=== PATIENT | male | born 1935 | race Caucasian/White ===

== ENCOUNTER → 2018-07-20 | Outpatient (CLI) | payer MEDICARE, BC ==
[~2018-07-20] MED LIST: AMLODIPINE BESYL5 MG PO; ASPIR 8181 MG PO; DICLOFENAC PO; DIOVAN HCT 3201 EACH PO; DOXAZOSIN MESYLA2 MG PO; GABAPENTIN400 MG PO; KETOCONAZOLE15 GM TOP; NORCO 10-325 T1 EACH PO; NORCO 7.5-3251 EACH PO; OMEPRAZOLE40 MG PO; PENTOXIFYLLINE400 MG PO; RANITIDINE HCL300 MG PO; SYNTHROID75 MCG PO; TIZANIDINE HCL4 MG PO
--- NOTE | 2018-07-20 11:36 | Diagnostic Imaging Report ---
MRI SPINE LUMBAR WO History: 82-year-old male with right greater than left back and leg pain for 3 years , suspected spinal stenosis, pain radiating anteriorly and posteriorly down both legs. Prior surgery. Spinal stenosis without neurogenic claudication. Comparison studies:None Technique: Sagittal and axial T2 , sagittal T1 and IR, axial spin density oblique. Intravenous contrast: None Findings: Postoperative changes appear to be present on the left at L4-L5, from possibly a laminotomy and partial facetectomy. Number of lumbar vertebral bodies: 5. Alignment: Straightening of the lumbar spine with loss of the normal lordosis. Right apex curvature of the lumbar spine centered at L3-L4 with 20 degrees of angulation. Soft tissues: Asymmetric increased T2 signal within the left L4-L5 facet joint. Paraspinal muscles: Mild atrophy of the paraspinous muscles. It appears appropriate for age. Lower thoracic cord: Normal in signal and morphology. The tip of the conus is at T12-L1 . Cauda equina: No masses. No arachnoiditis. Vertebrae: No compression fractures, infection or neoplasm. Degenerative changes: L1-L2: Decreased T2 signal within the disc with loss of normal disc height. Symmetric bulging disc with 3 mm of posterior mass effect. Spinal canal is widely patent. Mild narrowing of the left foramen. L2-L3: Decreased T2 signal within the disc. Symmetric bulging disc with 3 mm of posterior mass effect. Mild thickening of the ligamentum flavum. Mild narrowing of the spinal canal. Moderate to severe narrowing of the left foramen. L3-L4: Decreased T2 signal within the disc with severe loss of disc height. Symmetric bulging disc with 4 mm of posterior mass effect. Moderate narrowing of the spinal canal. Moderate narrowing the right foramen. Severe narrowing the left foramen. L4-L5: Decreased T2 signal within the disc with near complete loss of discs height. Symmetric bulging disc with 3.6 mm of posterior mass effect. Moderate narrowing of spinal canal. Thickening of the ligamentum flavum. Apparent postoperative changes within the left foramen with yylo-jl-njhqlaub residual narrowing. Severe narrowing of the right foramen. Severe bilateral facet arthropathy. L5-S1: Also T2 signal and disc height. Symmetric bulging disc with 2 mm of posterior mass effect. Spinal canal is patent. Moderate narrowing of the left foramen. Sydikhro-ui-iozzim narrowing of the right foramen. Bilateral facet arthropathy. IMPRESSION: 1. Possible postoperative changes seen adjacent to the left foramen at L4-L5 2. Foraminal narrowing greatest on the right L4-L5 and left L3-L4. 3. Degenerative disc greatest at L3-L4 and L4-L5 with near complete loss of disc space 4. Spinal canal narrowing greatest at L4-L5, moderate. Signed by: Dr. Raul Almazan M.D. on 07/20/2018 11:32 AM
== END ==
LOC: MRI 07:25
PROVIDERS: ATTEND Neurological Surgery
DX: M48.062 Spinal stenosis, lumbar region with neurogenic claudication (principal)
CPT/HCPCS: 72148

== ENCOUNTER 2018-07-21 07:44 | Observation (INO) | payer MEDICARE, BC ==
[2018-07-19 15:52] LABS: BASOPHILS # (AUTO) 0.1 (0.0-0.1); BASOPHILS % 0.7 % (0.0-1.0); EOSINOPHILS # (AUTO) 0.2 (0.0-0.4); EOSINOPHILS % 2.8 % (0.0-6.0); HEMATOCRIT 32.4 % (38.2-49.6); HEMOGLOBIN 10.9 g/dL (14.0-18.0); LYMPHOCYTES # (AUTO) 1.7 (1.0-3.2); LYMPHOCYTES % 22.5 % (18.0-39.1); MEAN CORPUSCULAR HEMOGLOBIN 32.4 pg (28-32); MEAN CORPUSCULAR HGB CONC 33.6 g/dL (31-35); MEAN CORPUSCULAR VOLUME 96.4 fL (81-99); MONOCYTES # (AUTO) 0.7 (0.2-0.8); MONOCYTES % 9.2 % (4.4-11.3); NEUTROPHILS # (AUTO) 4.8 (2.1-6.9); NEUTROPHILS % 64.4 % (38.7-80.0); PLATELET COUNT 223 x10e3/uL (140-360); RED BLOOD COUNT 3.36 x10e6/uL (4.3-5.7); RED CELL DISTRIBUTION WIDTH 13.7 % (11.7-14.4)
--- NOTE | 2018-07-19 15:58 | Diagnostic Imaging Report ---
EXAMINATION: PA and lateral views of the chest. COMPARISON: None CLINICAL HISTORY: Preoperative study for spinal surgery DISCUSSION: Lines/tubes: None. Lungs: The lungs are well inflated and clear. There is no evidence of pneumonia or pulmonary edema. Pleura: There is no pleural effusion or pneumothorax. Heart and mediastinum: The cardiomediastinal silhouette is normal. Bones and soft tissues: No acute bony abnormalities. IMPRESSION: No acute cardiopulmonary abnormalities. Signed by: Dr. Nghia Pollock M.D. on 07/19/2018 3:55 PM
[2018-07-19 16:00] LABS: INR 0.93
[2018-07-19 16:01] LABS: PARTIAL THROMBOPLASTIN TIME 25.5 seconds (23.8-35.5)
[2018-07-19 16:07] LABS: ANION GAP 12.7 mmol/L (8-16); CALCIUM 9.3 mg/dL (8.4-10.2); CREATININE, SERUM 1.19 mg/dL (0.72-1.25); POTASSIUM 3.7 mmol/L (3.5-5.1)
[~2018-07-21] VITALS: Ht 175.3 cm; Wt 74.8 kg
[~2018-07-21 07:44] MED LIST changes: -NORCO 7.5-3251 EACH PO
--- OUTSIDE RECORDS SUMMARY | 2018-07-21 07:51 | XMS REPORT ---
Author Author [facility] Organization [facility] Address Unknown Phone Unavailable Care Team Providers Care Slitter Operator Name Role Phone TAMIR WEIR Unavailable Unavailable Payers Payer Name Policy Type Policy Number Effective Date Expiration Date Problems This patient has no known problems. Allergies, Adverse Reactions, Alerts Allergy Name Allergy Type Status Severity Reaction(s) Onset Date Inactive Date Treating Clinician Comments clindamycin DA Active MA 2014-11-23 00:00:00 penicillin DA Active U 2014-10-29 00:00:00 Medications This patient has no known medications. Results Test Description Test Time Test Comments Text Results Atomic Results Result Comments MRI SPINE LUMBAR WO 2018-07-20 11:05:00 [place] [address] Patient Name: BINA ESPINOSA JR MR #: [id number] : 1935 Age/Sex: 82/M Req #: [id number] Adm Physician: Ordered by: TAMIR WEIR MD Report #: [id number] Location: MRI Room/Bed: Procedure: [id number] MRI/MRI SPINE LUMBAR WO Exam Date: Exam Time: REPORT STATUS: Signed MRI SPINE LUMBAR WO History: 82-year-old male with right greater than left back and leg pain for 3 years , suspected spinal stenosis, pain radiating anteriorly and posteriorly down both legs. Prior surgery. Spinal stenosis without neurogenic claudication. Comparison studies:None Technique: Sagittal and axial T2 , sagittal T1 and IR, axial spin density oblique. Intravenous contrast: None Findings: Postoperative changes appear to be present on the left at L4-L5, from possibly a laminotomy and partial facetectomy. Number of lumbar vertebral bodies: 5. Alignment: Straightening of the lumbar spine with loss of the normal lordosis. Right apex curvature of the lumbar spine centered at L3-L4 with 20 degrees of angulation. Soft tissues: Asymmetric increased T2 signal within the left L4-L5 facet joint. Paraspinal muscles: Mild atrophy of the paraspinous muscles. It appears appropriate for age. Lower thoracic cord: Normal in signal and morphology. The tip of the conus is at T12-L1 . Cauda equina: No masses. No arachnoiditis. Vertebrae: No compression fractures, infection or neoplasm. Degenerative changes: L1-L2: Decreased T2 signal within the disc with loss of normal disc height. Symmetric bulging disc with 3 mm of posterior mass effect. Spinal canal is widely patent. Mild narrowing of the left foramen. L2-L3: Decreased T2 signal within the disc. Symmetric bulging disc with 3 mm of posterior mass effect. Mild thickening of the ligamentum flavum. Mild narrowing of the spinal canal. Moderate to severe narrowing of the left foramen. L3-L4: Decreased T2 signal within the disc with severe loss of disc height. Symmetric bulging disc with 4 mm of posterior mass effect. Moderate narrowing of the spinal canal. Moderate narrowing the right foramen. Severe narrowing the left foramen. L4-L5: Decreased T2 signal within the disc with near complete loss of discs height. Symmetric bulging disc with 3.6 mm of posterior mass effect. Moderate narrowing of spinal canal. Thickening of the ligamentum flavum. Apparent postoperative changes within the left foramen with jeeh-uz-rravesmh residual narrowing. Severe narrowing of the right foramen. Severe bilateral facet arthropathy. L5-S1: Also T2 signal and disc height. Symmetric bulging disc with 2 mm of posterior mass effect. Spinal canal is patent. Moderate narrowing of the left foramen. Hvlcprjm-tf-vpbwxl narrowing of the right foramen. Bilateral facet arthropathy. IMPRESSION: 1. Possible postoperative changes seen adjacent to the left foramen at L4-L5 2. Foraminal narrowing greatest on the right L4-L5 and left L3-L4. 3. Degenerative disc greatest at L3-L4 and L4-L5 with near complete loss of disc space 4. Spinal canal narrowing greatest at L4-L5, moderate. Signed by: Dr. Raul Lofton M.D. on 07/20/2018 11:32 AM Dictated By: RAUL LOFTON MD 1132 Transcribed By: KYARA on 07/20/18 1132 COPY TO: TAMIR WEIR MD CHEST 2 VIEWS 2018-07-19 15:54:00 [place] [address] Patient Name: BINA ESPINOSA JR MR #: [id number] : 1935 Age/Sex: 82/M Req #: [id number] Adm Physician: Ordered by: TAMIR WEIR MD Report #: [id number] Location: OR Room/Bed: Procedure: [id number] DX/CHEST 2 VIEWS Exam Date: 07/19/18 Exam Time: 1530 REPORT STATUS: Signed EXAMINATION: PA and lateral views of the chest. COM PARISON: None CLINICAL HISTORY: Preoperative study for spinal surgery DISCUSSION: Lines/tubes: None. Lungs: The lungs are well inflated and clear. There is no evidence of pneumonia or pulmonary edema. Pleura: There is no pleural effusion or pneumothorax. Heart and mediastinum: The cardiomediastinal silhouette is normal. Bones and soft tissues: No acute bony abnormalities. IMPRESSION: No acute cardiopulmonary abnormalities. Signed by: Dr. Sumit Castorena M.D. on 07/19/2018 3:55 PM Dictated By: SUMIT CASTORENA MD 1534 Transcribed By: KYARA on 07/19/18 7281 COPY TO: TAMIR WEIR MD - XR UGI W/AIR W/O KUB 2018-07-01 12:10:00 FAX: Qing Jiménez MD [phone] [place]: St: REG FAX: Kendall Barth MD [phone] Name: BINA ESPINOSA JR [facility] : 1935 Age/S: 82/M [address] [place] [address] Unit #: [id number] Loc: [place] [address] Phys: Qing Meek MD Acct: [id number] Dis Date: Status: REG CLI PHONE #: [phone] Exam Date: 07/01/20181106 FAX #: [phone] Reason: K21.9 GERD, R10.13 EPIGAST ABD PAIN EXAMS: CPT CODE: [id number] XR UGI W/AIR W/O KUB 08136 Patient Name: BINA ESPINOSA JR : 1935; Age: 82 years y/o Male MR: [id number] Study: - XR UGI W/AIR W/O KUB 07/01/2018 11:00 AM Ordering Physician: Qign Meek MD Clinical Indication: ; K21.9 GERD, R10.13 EPIGASTRIC ABD PAIN Comparison: None TECHNIQUE AND FINDINGS: A routine upper gastrointestinal series performed under fluoroscopic observation. Multiple spot images were obtained. Fluoroscopic time was 5.3 minutes. Reference Air Kerma Dose 144.3 mGy. Pharyngoesophageal junction: Normal in appearance without narrowing or diverticulum. ESOPHAGUS Morphology: Normal in course and caliber. Motility: Normal primary and secondary peristaltic waves. Mucosa: Normal without thickening, irregularity, or ulcer. Esophagogastric junction: Normal. Gastroesophageal reflux: None. STOMACH Morphology: Normal degree of distention and shape. Mucosa: Normal appearing rugal folds. Gastroduodenal junction: There is prompt transit of the barium from the stomach into the duodenum. IMPRESSION: Unremarkable upper GI examination. SL: [id number] PAGE 1 Signed Report (CONTINUED) FAX: Qing Jiménez MD [phone] [place]: St: REG FAX: Kendall Barth MD [phone] Name: BINA ESPINOSA JR [facility] : 1935 Age/S: 82/M [address] [place] [address] Unit #: [id number] Loc: [place] [id number] Phys: Qing Meek MD Acct: [id number] Dis Date: Status: REG CLI PHONE #: [phone] Exam Date: 07/01/2018 1107 FAX #: [phone] Reason: K21.9 GERD, R10.13 EPIGAST ABD PAIN EXAMS: CPT CODE: [id number] XR UGI W/AIR W/O KUB 49427 <Continued> at 1210 Reported and signed by: Shilpi Lucero D.O. CC: Qing Meek MD; Kendall Kovacs MD Technologist: Jackelyn Duarte, RT(R), RTT Trnscrd Date/Time/By: 07/01/2018 (1210) : By: [email or web address] Orig Print D/T: S: 07/01/2018 (1514) PAGE 2 Signed Report
--- OUTSIDE RECORDS SUMMARY | 2018-07-21 07:51 | XMS REPORT | Clinical Summary ---
Author Author [facility] Address Unknown Phone Unavailable Care Team Providers Care Cash Register Mechanic Name Role Phone Kendall Kovacs MD PCP Allergies Not on File Medications Not on file Active Problems Not on file Encounters Care Team Description Date Type Specialty Arley Alejandro MD Spinal stenosis, lumbar region, without neurogenic claudication (Primary Dx); Lumbar radiculopathy; Low back pain, unspecified back pain laterality, unspecified chronicity, with sciatica presence unspecified 10/06/2017 Transcribe Physical Therapy Orders Arley Alejandro MD Spinal stenosis of lumbar region with radiculopathy (Primary Dx); Low back pain, unspecified back pain laterality, unspecified chronicity, with sciatica presence unspecified; Lumbar radiculopathy 08/17/2017 Transcribe Physical Therapy Orders after 07/20/2017 Social History Date Tobacco Use Types Packs/Day Years Used Never Assessed Sex Assigned at Date Recorded Not on file Industry Job Start Date Occupation Not on file Not on file Not on file Travel End Travel History Travel Start No recent travel history available. Last Filed Vital Signs Not on file Plan of Treatment Health Maintenance Due Date Last Done Comments SHINGLES VACCINES (#1) 11/25/1983 65+ PNEUMOCOCCAL VACCINE 1998 (1 of 2 - PCV13) PNEUMOCOCCAL 1998 POLYSACCHARIDE VACCINE AGE 65 AND OVER INFLUENZA VACCINE 09/15/2018 Results Not on fileafter 07/20/2017 Insurance Type Payer Benefit Subscriber ID Effective Phone Address Plan / Dates Group PPO BCBS ANTHEM xxxxxxxxxxxx [id number] BLUE CROSS resent Medicare MEDICARE MEDICARE xxxxxxxxxx 2017-P JOSE ANGEL, PART A AND resent [place] B Advance Directives Patient has advance care planning documents on file. For more information, leo muller contact: [facility] [address] [place] [address]
[2018-07-21] MEDS ORDERED: BUPIVACAINE 0.5%/EPI 30 ML SDV INJ ONE (08:10)
[2018-07-21] MEDS ORDERED: THROMBIN FOR SOLN 5,000 UNIT VIAL ONE (08:10)
[2018-07-21] MEDS ORDERED: BACITRACIN 50,000 UNIT VIAL ONE (08:11)
[2018-07-21] MEDS ORDERED: CEFAZOLIN SOD 2 GM/D5W 50ML 0 ML IV ONE (08:34)
[2018-07-21] MEDS ORDERED: ACETAMINOPHEN 1000 MG/100 ML 100 ML IV ONE (09:44)
[2018-07-21] MEDS ORDERED: SUGAMMADEX SODIUM 200 MG/2 ML VIAL IV ONE (09:44)
[2018-07-21] MEDS ORDERED: VANCOMYCIN 1GM/NS 250 ML 250 ML ONE (09:47)
[2018-07-21] MEDS ORDERED: GELATIN SPONGE 12-7MM ONE (10:28)
[2018-07-21] MEDS: LACTATED RINGER'S 1,000 ML IV SCH ×2 (11:03→19:23)
[2018-07-21] MEDS ORDERED: ACETAMINOPHEN 325 MG TAB PO PRN (11:15)
[2018-07-21] MEDS ORDERED: PROMETHAZINE HCL (IM) 25 MG/ML VIAL IM PRN (11:15)
[2018-07-21] MEDS ORDERED: CARISOPRODOL 350 MG TAB PO PRN (11:15)
[2018-07-21] MEDS ORDERED: ONDANSETRON HCL INJ 2MG/ML 2ML 2 MG/ML VIAL IV PRN (11:15)
[2018-07-21] MEDS ORDERED: MAGNESIUM/ALUMINUM/SIMETHICONE 30 ML UDC PO PRN (11:15)
[2018-07-21] MEDS ORDERED: MORPHINE SULFATE 5 MG/ML VIAL IM PRN (11:15)
[2018-07-21] MEDS ORDERED: HYDROMORPHONE 2MG/ML 2 MG/ML ML IV PRN (11:15)
[2018-07-21] MEDS ORDERED: MEPERIDINE HCL INJ 25 MG/ML VIAL ONE (11:29)
--- OUTSIDE RECORDS SUMMARY | 2018-07-21 11:41 | XMS REPORT | Clinical Summary ---
Author Author [facility] Address Unknown Phone Unavailable Care Team Providers Care Manager Continuous Improvement Name Role Phone Kendall Kovacs MD PCP [...] For more information, leo muller contact: [facility] [address] [place] [address]
--- NOTE | 2018-07-21 11:50 | NUR ---
Patient transferred to unit from PACU. Patient is post op laminectomy. Dressing to mid lower back noted to be clean and dry. Patient ambulated to the bathroom with assistance and a cane. Noted to have unsteady gait but voided at this time. Lung neumann clear to auscultation. Bowel SOunds present x4 and active. No edema noted. Left forearm IV in place. Patient wears glasses and has bilateral hearing aides. Both at bedside.
[2018-07-21 12:05] VITALS: BP 169/70
[2018-07-21 12:19] VITALS: BP 169/70
[2018-07-21] MEDS: OXYCODONE/ACETAMINOPHEN 5-325 1 EACH TABLET PO PRN ×3 (12:36→21:15)
[2018-07-21 12:45] VITALS: BP 169/70
[2018-07-21] MEDS: GABAPENTIN 400 MG CAP PO SCH ×2 (13:36→21:00)
[2018-07-21] MEDS: CEPACOL SORE THROAT LOZENGES PO PRN ×2 (13:45→23:58)
--- NOTE | 2018-07-21 16:48 | Operative Report ---
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 PROCEDURES: Right L4-5 laminotomy, medial facetectomy, microsurgical lateral recess decompression, [address]88[address]. ANESTHESIA: General. INDICATIONS: The patient is an 82-year-old man, who presents with severe right L4-5 lateral recess stenosis with marked hypertrophy and partial ossification of ligamentum flavum, producing right L5 radiculopathy and unilateral neurogenic claudication. He was taken to the operating room for microsurgical decompression. DESCRIPTION OF PROCEDURE: After induction of general anesthesia, the patient was placed on the operating table in prone position over Ramon frame. Lumbar region was prepped and draped in sterile fashion. A preoperative x-ray was obtained. A small paramedian incision was created and the lumbar fascia was opened in right of midline and a subperiosteal dissection was carried out to expose underlying laminae. An x-ray revealed localization at the L3-4. One segment was counted below this level to expose the L4-5 segment. The operating microscope was brought in. A high-speed drill equipped with a susie bur was used to drill the inferior two-thirds of lamina of L4 and medial rim of markedly hypertrophic L4-5 facet joint and superior lamina of L5. The markedly hypertrophic ligamentum flavum, which was partially ossified was carefully dissected free up to dural sac and resected in a piecemeal fashion with a 2 mm Kerrison rongeur until it was completely resected. The dural sac and L5 nerve root were thus fully exposed and decompressed. We explored out L4 nerve root was also exposed and decompressed. Meticulous hemostasis was secured. Retraction was removed. Lumbar fascia was closed with 0 Vicryl suture, subcutaneous layer was closed with 2-0 Vicryl sutures, and the skin was closed with 3-0 Monocryl sutures in subcuticular fashion. Steri-Strips and dressing were applied. The patient was awakened, extubated, and taken to postanesthesia care unit in stable condition. No intraoperative complications were encountered. ESTIMATED BLOOD LOSS: 10 mL. Javi Phan MD PP/EULALIA /[id number]
[2018-07-21 16:54] VITALS: BP 128/62
[2018-07-21] MEDS ORDERED: DICLOFENAC 50 MG PO SCH (17:00)
[2018-07-21] MEDS: KETOCONAZOLE 2% CREAM/15 GM TUBE TOP SCH (17:00)
[2018-07-21] MEDS ORDERED: PROPOFOL IV EMULSION 10 MG/ML 20 ML VIAL ONE (17:03)
[2018-07-21] MEDS ORDERED: LIDOCAINE HCL 2% LOCAL INJ 5 ML SDV VIAL INJ ONE (17:03)
[2018-07-21] MEDS ORDERED: DESFLURANE 240 ML BTL INH ONE (17:03)
[2018-07-21] MEDS ORDERED: ONDANSETRON HCL INJ 2MG/ML 2ML 2 MG/ML VIAL ONE (17:03)
[2018-07-21] MEDS ORDERED: DEXAMETHASONE SOD PHOS INJ 4 MG/ML VIAL ONE (17:03)
[2018-07-21] MEDS: PENTOXIFYLLINE 400 MG TAB CR PO SCH ×2 (17:12→21:00)
[2018-07-21] MEDS ORDERED: MIDAZOLAM HCL 2 MG/2 ML VIAL ONE (17:35)
[2018-07-21] MEDS ORDERED: FENTANYL CITRATE/PF 100MCG/2 ML INJ ONE (17:35)
[2018-07-21] MEDS: DICLOFENAC SOD 50 MG TAB PO SCH (17:44)
[2018-07-21] MEDS: VANCOMYCIN 1GM/NS 250 ML 250 ML IV SCH (20:50)
[2018-07-21 20:55] VITALS: BP 119/66
[2018-07-21] MEDS ORDERED: FAMOTIDINE 20 MG TAB PO SCH (21:00)
[2018-07-21] MEDS ORDERED: ZOLPIDEM TARTRATE 5 MG TAB PO PRN (21:00)
[2018-07-21] MEDS ORDERED: DOXAZOSIN MESYLATE 2 MG TAB PO SCH (21:00)
[2018-07-21] MEDS ORDERED: TIZANIDINE HCL 4 MG TAB PO SCH (21:00)
[2018-07-21] MEDS ORDERED: LEVOTHYROXINE SODIUM 75 MCG TAB PO SCH (21:00)
[2018-07-21] MEDS ORDERED: AMLODIPINE BESYLATE 5 MG TAB PO SCH (21:00)
[2018-07-21] MEDS ORDERED: NON-FORMULARY MEDICATION (Ranitidine Hcl 300 MG) PO SCH (21:00)
[2018-07-21] MEDS ORDERED: SODIUM CHLORIDE 0.9% 250ML 250 ML ONE (21:18)
[2018-07-22 00:37] VITALS: BP 161/68
[2018-07-22] MEDS: LACTATED RINGER'S 1,000 ML IV SCH (03:43)
[2018-07-22 06:37] VITALS: BP 148/67
--- NOTE | 2018-07-22 07:00 | NUR ---
BEDSIDE ROUNDS COMPLETE NO DISTRESS NOTED, UPDATED ON POC VOICED UNDERSTANDING, EVA PAIN AT THIS TIME, DSG TO MID BACK C/D/I, NO OTHER CO VOICED CALL LIGHT IN REACH WILL CONTINUE TO MONITOR
[2018-07-22] MEDS ORDERED: PANTOPRAZOLE SOD 40 MG TABEC PO SCH (07:30)
[2018-07-22 08:20] VITALS: BP 157/73
[2018-07-22] MEDS: OXYCODONE/ACETAMINOPHEN 5-325 1 EACH TABLET PO PRN (08:20)
[2018-07-22] MEDS: PENTOXIFYLLINE 400 MG TAB CR PO SCH (08:20)
[2018-07-22] MEDS: DICLOFENAC SOD 50 MG TAB PO SCH (08:20)
[2018-07-22] MEDS: VANCOMYCIN 1GM/NS 250 ML 250 ML IV SCH (08:20)
[2018-07-22] MEDS: GABAPENTIN 400 MG CAP PO SCH (08:20)
[2018-07-22] MEDS ORDERED: VALSARTAN 160 MG TAB PO SCH (09:00)
[2018-07-22] MEDS ORDERED: HYDROCHLOROTHIAZIDE 25 MG TAB PO SCH (09:00)
[2018-07-22] MEDS: KETOCONAZOLE 2% CREAM/15 GM TUBE TOP SCH (09:00)
[2018-07-22] MEDS ORDERED: NON-FORMULARY MEDICATION (Valsartan/Hydrochlorothiazide (Diovan Hct 320-25 Mg Tablet) 1 TA PO SCH (09:00)
[2018-07-22] MEDS ORDERED: NORCO 7.5-3251 EACH PO (10:17)
[2018-07-22] MEDS ORDERED: ONDANSETRON HCL 4 MG ORAL DISINTEGRATING TAB PO PRN (11:15)
== END 2018-07-22 11:16 | disposition home or self-care (01) ==
LOC: OR 07:44 → PACU V 11:04 → MED/SURG 11:53
PROVIDERS: ADMIT Neurological Surgery; ATTEND Neurological Surgery
DX: M48.062 Spinal stenosis, lumbar region with neurogenic claudication (principal); Z01.810 Encounter for preprocedural cardiovascular examination; Z01.812 Encounter for preprocedural laboratory examination; Z01.811 Encounter for preprocedural respiratory examination; Z88.0 Allergy status to penicillin; I10 Essential (primary) hypertension; K21.9 Gastro-esophageal reflux disease without esophagitis; E03.9 Hypothyroidism, unspecified; R12 Heartburn; M19.90 Unspecified osteoarthritis, unspecified site; Z87.891 Personal history of nicotine dependence
CPT/HCPCS: 36415; 63047; 71046; 72020; 80048; 85025; 85610; 85730; 86850; 86900; 88304; 93005; G0378 ×2; J0131; J1100; J2001; J2175; J2250; J2405; J2704; J3370 ×2; J7050; S0164; J0690

== ENCOUNTER → 2019-03-21 | Day surgery (SDC) | payer MEDICARE, BC ==
[~2019-03-21] MED LIST changes: +BUPRENORPHINE; +CENTRUM SILVER1 EAC3 PO; +DEXILANT60 MG PO; +FAMOTIDINE10 MG PO; +FENTANYL CITRATE/PF 100MCG/2 ML INJ ONE; +FIBER TABS625 MG PO; +HYDROCORTISONE30 GM TOP; +METROGEL55 GM TOP; +MIDAZOLAM HCL 2 MG/2 ML VIAL ONE; +MIRALAX17 GM PO; +MUPIROCIN22 GM TOP; +NASOCORT; +NORCO 7.5-3251 EACH PO; +OR PHACO EYE KIT ONE; +PREOP PHACO EYE KIT ONE; +PROBIOTIC & AC1 EACH PO; +SUCRALFATE1 GM PO
[2019-03-21 11:15] VITALS: BP 157/75
== END | disposition home or self-care (01) ==
LOC: OR 08:01
PROVIDERS: ATTEND Ophthalmology
DX: H25.11 Age-related nuclear cataract, right eye (principal); K21.9 Gastro-esophageal reflux disease without esophagitis; I10 Essential (primary) hypertension; Z88.0 Allergy status to penicillin; Z79.82 Long term (current) use of aspirin
CPT/HCPCS: 66984; J2250; J3010; V2632

== ENCOUNTER → 2019-04-04 | Day surgery (SDC) | payer MEDICARE, BC ==
[2019-04-04 12:55] VITALS: BP 148/70
== END | disposition home or self-care (01) ==
LOC: OR 09:32
PROVIDERS: ATTEND Ophthalmology
DX: H25.12 Age-related nuclear cataract, left eye (principal); E03.9 Hypothyroidism, unspecified; K44.9 Diaphragmatic hernia without obstruction or gangrene; K21.9 Gastro-esophageal reflux disease without esophagitis; R53.1 Weakness; H91.90 Unspecified hearing loss, unspecified ear; M54.9 Dorsalgia, unspecified; I10 Essential (primary) hypertension; Z88.0 Allergy status to penicillin; Z79.82 Long term (current) use of aspirin; Z87.891 Personal history of nicotine dependence
CPT/HCPCS: 66984; J2250; J3010

== ENCOUNTER 2021-10-11 17:05 | Inpatient (IN) | payer MEDICARE, BC ==
[~2021-10-11] VITALS: Ht 175.3 cm; Wt 74.8 kg
[~2021-10-11 17:05] MED LIST changes: -FENTANYL CITRATE/PF 100MCG/2 ML INJ ONE; -MIDAZOLAM HCL 2 MG/2 ML VIAL ONE; -OR PHACO EYE KIT ONE; -PREOP PHACO EYE KIT ONE
[2021-10-11] MEDS ORDERED: ONDANSETRON HCL INJ 2MG/ML 2ML 2 MG/ML VIAL IV PRN (18:30)
[2021-10-11 20:00] VITALS: BP 162/70
[2021-10-11] MEDS ORDERED: MINOXIDIL2.5 MG PO (21:27)
[2021-10-11] MEDS ORDERED: ROPINIROLE HCL1 MG PO (21:27)
[2021-10-11] MEDS ORDERED: COREG6.25 MG PO (21:27)
[2021-10-11] MEDS ORDERED: OXYCODONE-ACET1 EAC3 PO (21:27)
[2021-10-11] MEDS ORDERED: OMEPRAZOLE40 MG PO (21:27)
[2021-10-11] MEDS ORDERED: VALSARTAN-HCTZ1 EAC4 PO (21:27)
[2021-10-11] MEDS ORDERED: BUPROPION XL150 MG PO (21:27)
[2021-10-11] MEDS ORDERED: FLOMAX0.4 MG PO (21:27)
[2021-10-11] MEDS ORDERED: CLONIDINE HCL0.1 MG PO (21:27)
[2021-10-11] MEDS ORDERED: BACTRIM DS TAB1 EACH PO (21:33)
[2021-10-11] MEDS: ROPINIROLE HCL 1 MG TAB PO SCH (23:19)
[2021-10-11] MEDS: OXYCODONE/ACETAMINOPHEN 5-325 1 EACH TABLET PO PRN (23:19)
[2021-10-11 23:34] VITALS: BP 162/70
[2021-10-12] VITALS (9 sets, daily range): BP systolic 136–162; BP diastolic 60–76
[2021-10-12] MEDS: OXYCODONE/ACETAMINOPHEN 5-325 1 EACH TABLET PO PRN ×2 (04:57→21:10)
[2021-10-12] MEDS ORDERED: POLYETHYLENE GLYCOL 3350 17 GM PACK PO SCH (07:30)
[2021-10-12] MEDS: LEVOTHYROXINE SODIUM 75 MCG TAB PO SCH (07:52)
[2021-10-12 08:15] LABS: BASOPHILS # (AUTO) 0.1 (0.0-0.1); BASOPHILS % 0.8 % (0.0-1.0); EOSINOPHILS # (AUTO) 0.3 (0.0-0.4); EOSINOPHILS % 5.2 % (0.0-6.0); HEMATOCRIT 30.5 % (38.2-49.6); HEMOGLOBIN 10.7 g/dL (14.0-18.0); LYMPHOCYTES # (AUTO) 1.2 (1.0-3.2); LYMPHOCYTES % 19.1 % (18.0-39.1); MEAN CORPUSCULAR HEMOGLOBIN 32.4 pg (28-32); MEAN CORPUSCULAR HGB CONC 35.1 g/dL (31-35); MEAN CORPUSCULAR VOLUME 92.4 fL (81-99); MONOCYTES # (AUTO) 0.8 (0.2-0.8); MONOCYTES % 13.1 % (4.4-11.3); NEUTROPHILS # (AUTO) 3.8 (2.1-6.9); NEUTROPHILS % 61.5 % (38.7-80.0); PLATELET COUNT 291 x10e3/uL (140-360); RED CELL DISTRIBUTION WIDTH 12.6 % (11.7-14.4)
[2021-10-12 08:37] LABS: ALBUMIN 3.4 g/dL (3.5-5.0); CALCIUM 9.4 mg/dL (8.4-10.2); CREATININE, SERUM 1.16 mg/dL (0.72-1.25); MAGNESIUM 1.8 MG/DL (1.3-2.1)
[2021-10-12] MEDS ORDERED: SODIUM CHLORIDE 0.9% 500ML 500 ML IV ONE ×2 (09:00→12:00)
[2021-10-12] MEDS ORDERED: ROPINIROLE HCL 1 MG TAB PO SCH (09:00)
[2021-10-12] MEDS: BUPROPION HCL 150 MG TABCR PO SCH (09:33)
[2021-10-12] MEDS: TAMSULOSIN HCL 0.4 MG CAP PO SCH ×2 (09:33→17:07)
[2021-10-12] MEDS: PANTOPRAZOLE SOD 40 MG TABEC PO SCH (09:33)
[2021-10-12] MEDS: CARVEDILOL 3.125 MG TAB PO SCH ×2 (09:33→17:08)
[2021-10-12] MEDS: ASPIRIN 81 MG CHEW TAB PO SCH (09:33)
[2021-10-12] MEDS: ROPINIROLE HCL 1 MG TAB PO SCH ×2 (09:33→17:07)
[2021-10-12] MEDS: MINOXIDIL 2.5 MG TAB PO SCH ×2 (09:34→17:07)
[2021-10-12] MEDS: PENTOXIFYLLINE 400 MG TAB CR PO SCH ×3 (11:02→21:08)
[2021-10-12] MEDS: CLONIDINE HCL 0.1 MG TAB PO PRN (12:02)
[2021-10-12] MEDS ORDERED: SODIUM CHLORIDE 1 GM TAB PO ONE (17:00)
[2021-10-12] MEDS: SODIUM CHLORIDE 1 GM TAB PO SCH (21:09)
[2021-10-12] MEDS: DOXAZOSIN MESYLATE 2 MG TAB PO SCH (21:09)
[2021-10-13] VITALS (7 sets, daily range): BP systolic 131–160; BP diastolic 52–66
[2021-10-13] MEDS: OXYCODONE/ACETAMINOPHEN 5-325 1 EACH TABLET PO PRN ×5 (01:23→22:45)
[2021-10-13] MEDS ORDERED: ONDANSETRON HCL 4 MG ORAL DISINTEGRATING TAB PO PRN (07:00)
[2021-10-13 07:10] LABS: ALBUMIN 3.2 g/dL (3.5-5.0); ALBUMIN/GLOBULIN RATIO 1.2 (0.8-2.0); ANION GAP 13.1 mmol/L (8-16); CALCIUM 8.8 mg/dL (8.4-10.2); CREATININE, SERUM 1.01 mg/dL (0.72-1.25); POTASSIUM 4.1 mmol/L (3.5-5.1)
[2021-10-13] MEDS: LEVOTHYROXINE SODIUM 75 MCG TAB PO SCH (08:27)
[2021-10-13] MEDS: CARVEDILOL 3.125 MG TAB PO SCH ×2 (08:28→16:06)
[2021-10-13] MEDS: ASPIRIN 81 MG CHEW TAB PO SCH (08:28)
[2021-10-13] MEDS: TAMSULOSIN HCL 0.4 MG CAP PO SCH ×2 (08:29→16:05)
[2021-10-13] MEDS: ROPINIROLE HCL 1 MG TAB PO SCH ×2 (08:30→16:05)
[2021-10-13] MEDS: PENTOXIFYLLINE 400 MG TAB CR PO SCH ×3 (08:30→20:46)
[2021-10-13] MEDS: PANTOPRAZOLE SOD 40 MG TABEC PO SCH (08:30)
[2021-10-13] MEDS: SODIUM CHLORIDE 1 GM TAB PO SCH ×3 (08:30→20:46)
[2021-10-13] MEDS: BUPROPION HCL 150 MG TABCR PO SCH (08:30)
[2021-10-13] MEDS: MINOXIDIL 2.5 MG TAB PO SCH ×2 (08:30→16:05)
[2021-10-13] MEDS: LOSARTAN POTASSIUM 100 MG TAB PO SCH (10:52)
[2021-10-13] MEDS: DOXAZOSIN MESYLATE 2 MG TAB PO SCH (20:46)
[2021-10-14 01:28] VITALS: BP 157/58
[2021-10-14] MEDS: OXYCODONE/ACETAMINOPHEN 5-325 1 EACH TABLET PO PRN ×2 (03:24→10:28)
[2021-10-14 05:13] VITALS: BP 169/65
[2021-10-14 05:44] LABS: CALCIUM 9.1 mg/dL (8.4-10.2); CREATININE, SERUM 0.99 mg/dL (0.72-1.25)
[2021-10-14] MEDS: LEVOTHYROXINE SODIUM 75 MCG TAB PO SCH (06:48)
[2021-10-14 08:14] VITALS: BP 165/68
[2021-10-14] MEDS: ASPIRIN 81 MG CHEW TAB PO SCH (08:27)
[2021-10-14] MEDS: LOSARTAN POTASSIUM 100 MG TAB PO SCH (08:28)
[2021-10-14] MEDS: CARVEDILOL 3.125 MG TAB PO SCH (08:28)
[2021-10-14] MEDS: SODIUM CHLORIDE 1 GM TAB PO SCH (08:29)
[2021-10-14] MEDS: PANTOPRAZOLE SOD 40 MG TABEC PO SCH (08:29)
[2021-10-14] MEDS: TAMSULOSIN HCL 0.4 MG CAP PO SCH (08:29)
[2021-10-14] MEDS: ROPINIROLE HCL 1 MG TAB PO SCH (08:29)
[2021-10-14] MEDS: PENTOXIFYLLINE 400 MG TAB CR PO SCH (08:29)
[2021-10-14] MEDS: MINOXIDIL 2.5 MG TAB PO SCH (08:29)
[2021-10-14] MEDS: BUPROPION HCL 150 MG TABCR PO SCH (08:30)
[2021-10-14 12:32] VITALS: BP 170/72
[2021-10-14] MEDS: CLONIDINE HCL 0.1 MG TAB PO PRN (12:35)
[2021-10-14 13:15] VITALS: BP 176/73
[2021-10-14 13:53] VITALS: BP 167/67
== END 2021-10-14 14:25 | disposition home or self-care (01) | DRG 918 ==
LOC: FSED 17:36 → ERHOLD 18:33 → MED/SURG 19:47
PROVIDERS: ADMIT Family Medicine; ATTEND Family Medicine
DX: T40.2X1A Poisoning by other opioids, accidental (unintentional), initial encounter (principal); E87.1 Hypo-osmolality and hyponatremia; D64.9 Anemia, unspecified; I10 Essential (primary) hypertension; E03.9 Hypothyroidism, unspecified; K21.9 Gastro-esophageal reflux disease without esophagitis; N40.0 Benign prostatic hyperplasia without lower urinary tract symptoms; Z79.891 Long term (current) use of opiate analgesic; R41.0 Disorientation, unspecified; G89.4 Chronic pain syndrome; K59.00 Constipation, unspecified; Z20.822 Contact with and (suspected) exposure to COVID-19; I73.9 Peripheral vascular disease, unspecified; G25.81 Restless legs syndrome; E78.5 Hyperlipidemia, unspecified; M54.50 Low back pain, unspecified; Z91.010 Allergy to peanuts
CPT/HCPCS: 0223U; 36415; 70450; 71250; 80048; 80053; 81003; 82553; 83735; 84295; 85025; 87086; 93005; 99285; J7040